=== PATIENT | male | born 1965 | race Caucasian/White ===

== ENCOUNTER 2019-03-23 19:25 | Emergency (ER) | payer BC, OTHER ==
[2019-03-23 19:33] VITALS: BP 143/91; PULSE 84; TEMP 97.8; BMI 22.8
--- NOTE | 2019-03-23 19:35 | PDOC ---
Rapid Medical Evaluation Chief Complaint: Edema Time Seen by Provider: 03/23/19 19:34 Medical Evaluation: Allergies Allergy/AdvReac Type Severity Reaction Status Date / Time No Known Allergies Allergy Verified 03/23/19 19:33 Vital Signs Temp Pulse Resp BP Pulse Ox 97.8 F 84 18 143/91 100 03/23/19 19:28 03/23/19 19:28 03/23/19 19:28 03/23/19 19:28 03/23/19 19:28 03/23/19 19:34 I have performed a brief in-person evaluation of this patient. The patient presents with a chief complaint of: atraumatic right elbow deformity Pertinent physical exam findings: soft deformity present to olecranon I have ordered the following: xray The patient will proceed to the ED for further evaluation. Discharge Disposition - Diagnosis Bursitis - Referrals - Patient Instructions - Post Discharge Activity
--- NOTE | 2019-03-23 21:21 | PDOC ---
History of Present Illness - General Chief Complaint: Edema Stated Complaint: SWOLLEN ELBO Time Seen by Provider: 03/23/19 19:34 - History of Present Illness Initial Comments: 03/23/19 21:16 53-year-old male with a past medical history significant for hypertension presents for evaluation of right elbow swelling times one day without systemic symptoms. Past History - Past Medical History Allergies/Adverse Reactions: Allergies Allergy/AdvReac Type Severity Reaction Status Date / Time No Known Allergies Allergy Verified 03/23/19 19:33 Home Medications: Ambulatory Orders No Home Medications 0 dose .ROUTE UTDICT 03/02/14 COPD: No HTN: Yes - Suicide/Smoking/Psychosocial Hx Smoking Status: No Smoking History: Never smoked Number of Cigarettes Smoked Daily: 0 Hx Alcohol Use: Yes (OCCASIONALLY) Substance Use Type: Alcohol Review of Systems - Review of Systems Musculoskeletal: Yes: See HPI, Joint Swelling *Physical Exam - Vital Signs Last Vital Signs Temp Pulse Resp BP Pulse Ox 97.8 F 84 18 143/91 100 03/23/19 19:28 03/23/19 19:28 03/23/19 19:28 03/23/19 19:28 03/23/19 19:28 - Physical Exam Comments: 03/23/19 21:16 There is purple ecchymosis about the posterior aspect of the right elbow. A large olecranon bursa is palpated. Extending into the posterior superior aspect of the left forearm. Forearm compartments are soft and nontender. There is full nonpainful range of motion of the shoulder elbow forearm wrist and fingers forearm compartments are soft and nontender. There is no instability or gross sensory motor deficits neurovascularly intact. Medical Decision Making - Medical Decision Making 03/23/19 21:17 We will refer to orthopedics for olecranon bursitis. X-rays of the right elbow show no fracture. *DC/Admit/Observation/Transfer Diagnosis at time of Disposition: Bursitis - Discharge Dispostion Disposition: HOME Condition at time of disposition: Stable Decision to Admit order: No - Referrals Referrals: Jadiel Torres [Primary Care Provider] - Bogdan Gutierrez DO [Staff Physician] - - Patient Instructions Printed Discharge Instructions: DI for Elbow Bursitis Additional Instructions: Return to the emergency room for worsening symptoms. Follow-up with orthopedic surgery in 1-2 days without fail for further evaluation and treatment options. - Post Discharge Activity
== END 2019-03-23 21:30 | disposition home or self-care (01) ==
LOC: JERFT 19:25
DX: M71.521 Other bursitis, not elsewhere classified, right elbow (principal); I10 Essential (primary) hypertension
CPT/HCPCS: 73070-TC-RT-FY; 99282-25